=== PATIENT | female | born 1990 ===

== ENCOUNTER 2019-12-05 06:32 | Inpatient (IN) | payer OTHER ==
[~2019-12-05] VITALS: Ht 162.6 cm; Wt 76.7 kg
[2019-12-05] MEDS ORDERED: FOLIC ACID1 MG PO (07:47)
== END 2019-12-07 14:13 | DRG 807 ==
LOC: LDR 06:32 → OB/GYN 15:20
PROVIDERS: ADMIT Obstetrics & Gynecology; ATTEND Obstetrics & Gynecology
PROC: 10E0XZZ Delivery of Products of Conception, External Approach (ICD-10-PCS; principal; 2019-12-05)
PROC: 4A0HXFZ Measurement of Products of Conception, Cardiac Rhythm, External Approach (ICD-10-PCS; 2019-12-05)
DX: O80 Encounter for full-term uncomplicated delivery (principal); Z37.0 Single live birth; Z3A.39 39 weeks gestation of pregnancy